=== PATIENT | male | born 1985 | race African-American/Black ===

== ENCOUNTER 2016-09-25 15:47 | Inpatient (IN) ==
[2016-09-25] MEDS ORDERED: METOCLOPRAMIDE 10 MG/2 ML VIAL IV STA (16:08)
[2016-09-25] MEDS ORDERED: ONDANSETRON 4 MG/2 ML VIAL IV STA (16:08)
[2016-09-25] MEDS ORDERED: PANTOPRAZOLE 40 MG VIAL IV STA (16:08)
[2016-09-25] MEDS ORDERED: SODIUM CHLORIDE 0.9% 1,000 ML IV STA (16:08)
[2016-09-25] MEDS ORDERED: LOPERAMIDE 2 MG CAPSULE PO STA (16:08)
[2016-09-25] MEDS ORDERED: metroNIDAZOLE 500 MG TABLET PO STA (16:08)
--- NOTE | 2016-09-25 16:13 | Emergency Department Note ---
Arrival - Arrival Chief Complaint: Nausea/Vomiting/Diarrhea Stated Complaint: DIARRHEA ED Nursing Triage Note: Pt c/o abd pain, diarrhea, fever, nausea, and GUIDO x 2 wks. Pt was seen in the ER while in [facility] for the same complaint. Mode of Arrival: Ambulatory Limitations: No Limitations Source: Patient Time Seen by Provider: 09/25/16 16:07 - History of Present Illness HPI Narrative: This 31-year-old black male presents with 2 weeks of persistent nausea, vomiting , loose stools, low-grade fever, and abdominal cramping onset the day after having some [employer] fried chicken. The patient while in [place] was seen by a physician who told him he had gastroenteritis and began him on Zofran and hydrocodone. The patient has had no let up in symptoms in the last 2 weeks and is feeling progressively more weak. The patient states that he has had no prior problems with his abdomen except for reflux and currently has had escalation in symptoms of heartburn, belching, and water brash. He denies any bright red blood per rectum or melena. Currently he appears medically stable. Onset (ago): week(s) (Patient presents 2 weeks post onset of symptoms) Allergies/Adverse Reactions: Allergies Allergy/AdvReac Type Severity Reaction Status Date / Time No Known Allergies Allergy Unverified 05/25/16 16:54 Home Medications: Home Medications Medication Instructions Recorded Confirmed Type Hydrocodone/Acetaminophen 1 each PO Q6H PRN 09/25/16 09/25/16 History [Hydrocodon-Acetaminophen 5-325] Lansoprazole [Prevacid] 30 mg PO DAILY 09/25/16 09/25/16 History Ondansetron Odt Tab [Zofran Odt] 4 mg PO Q6H PRN 09/25/16 09/25/16 History Review of System - Review of System 12 point system: reviewed and no additional remarkable complaints except as stated - Review of System Constitutional: Present: as per HPI Gastrointestinal: Present: as per HPI Medical,Surgical,& Family Hx - Social History Smoking Status: Never smoker Exam Physical Examination: GENERAL: Well developed, well nourished black male in no acute distress. HEENT: Normocephalic. No trauma. Moist mucous membranes. EOMI. PERRLA. ENT NML NECK: Supple. No adenopathy. CARDIAC: Regular. No murmurs. Heart rate 90 CHEST: Clear to auscultation. No respiratory distress. O2 sat 98 ABDOMEN: Soft. Diffusely tender, especially in the midepigastrium. Hyperactive bowel sounds. EXTREMITIES: No trauma. Normal ROM. No pedal edema. SKIN: No diaphoresis. No rash. NEURO: Alert. Neuro intact no focal deficits. Vital Signs: Vital Signs Temperature 99.7 F H 09/25/16 16:20 Pulse Rate 89 09/25/16 16:20 Respiratory Rate 18 09/25/16 16:20 Blood Pressure 133/71 09/25/16 16:20 O2 Sat by Pulse Oximetry 98 09/25/16 15:47 Course - Reevaluation(s) Reevaluation #1: Advised patient of CT findings of severe colitis and advised need for hospitalization for further evaluation and treatment with probable colonoscopy. - Consultations Consultation #1: Discussed with hospitalist service who will admit for further evaluation and treatment. Results - Labs CBC & BMP: 09/25/16 16:22 09/25/16 18:30 - Diagnostic Findings Procedure: CT Abdomen and Pelvis: image reviewed by me, report reviewed by me ( Changes of inflammatory bowel disease with associated mesenteric adenopathy) Disposition Clinical Impression: Colitis Case discussed with: patient, patient's family Disposition: Still a Patient Condition: Stable Time of Disposition: 19:37
[2016-09-25] MEDS ORDERED: LOPERAMIDE 2 MG CAPSULE ONE (16:16)
[2016-09-25] MEDS ORDERED: PANTOPRAZOLE 40 MG VIAL IV ONE (16:16)
[2016-09-25] MEDS ORDERED: ONDANSETRON 4 MG/2 ML VIAL ONE (16:16)
[2016-09-25] MEDS ORDERED: METOCLOPRAMIDE 10 MG/2 ML VIAL ONE (16:16)
[2016-09-25] MEDS ORDERED: metroNIDAZOLE 500 MG TABLET ONE (16:16)
[2016-09-25 16:36] LABS: Basophils % 0.3 % (0.0-0.8); Eosinophils % 0.4 % (0.00-10.9); Hematocrit 43.4 VOL% (42.0-52.0); Hemoglobin 14.2 GM/DL (14.0-18.0); Immature Granulocytes % 0.4 %; Immature Granulocytes Absolute 0.03 #; Lymphocytes # 1.3 10*3/uL (1.4-4.0); Lymphocytes % 16.8 % (21.2-54.2); Mean Corpuscular HGB Conc 32.7 GM/DL (32-36); Mean Corpuscular Hemoglobin 26 PG (27-34); Mean Corpuscular Volume 78.8 FL (87-102); Mean Platelet Volume 9.1 FL (9.6-12.0); Monocytes # 0.5 10*3/uL (0.11-0.8); Monocytes % 6.5 % (1.7-12.7); Neutrophils % 75.6 % (38.7-73.9); Platelet Count 271 T/CUMM (130-400); Red Blood Count 5.51 MC/CUMM (3.8-5.5); Red Cell Distribution Width 12.2 % (9.3-17.3)
--- NOTE | 2016-09-25 17:41 | CT Report ---
Referring physician: Harris Lindsey EXAM: CT abdomen and pelvis with contrast DATE: 09/25/2016 COMPARISON: None REASON: Generalized abdominal pain TECHNIQUE: Axial images of the abdomen and pelvis were obtained after administration of 100 cc of Omnipaque 350 IV contrast. Coronal and sagittal reformatted images were also provided. Total DLP is 903.80 mGy*cm. FINDINGS: Minimal atelectasis at the lung bases. The liver is normal in size with no masses, dilated ducts, or calcified gallstones. The spleen, pancreas, adrenal glands, and kidneys have an unremarkable appearance. No renal or ureteral calculi are identified. The abdominal aorta is normal in size with no adjacent adenopathy. No dilatation of the small bowel. Significant diffuse thickening of the wall of the colon with no evidence of appendicitis, diverticulitis, or free air. However there are minimally enlarged lymph nodes in the mesentery especially in the right abdominal location. IMPRESSION: Minimal atelectasis at the lung bases. Significant diffuse thickening of the wall of the colon which can be seen with colitis, inflammatory bowel disease, etc. Multiple minimally enlarged lymph nodes in the mesentery which may be reactive but is a somewhat nonspecific finding. If symptoms persist, follow-up CT may be helpful for further evaluation. Nonspecific minimal free fluid in the pelvis. The CT exam was performed using one or more of the following dose reduction techniques: Automated exposure control and adjustment of the mA and/or kV according to patient size. PROCEDURE INTERPRETED AT [facility] DEPARTMENT OF RADIOLOGY Final Report Signed by: Dr. Radha Bourne
[2016-09-25] MEDS ORDERED: HYDROmorphone 2 MG/1 ML VIAL IV STA (17:46)
[2016-09-25] MEDS ORDERED: HYDROmorphone 2 MG/1 ML VIAL ONE (17:48)
[2016-09-25] MEDS ORDERED: methylPREDNISolone SOD SUC 125 MG/2 ML VIAL ONE (17:48)
[2016-09-25] MEDS ORDERED: methylPREDNISolone SOD SUC 125 MG/2 ML VIAL IV STA (17:48)
[2016-09-25 19:12] LABS: Albumin 3.3 G/DL (3.4-5.0); Bilirubin,Total 0.7 MG/DL (0.2-1.0); Calcium 8.5 MG/DL (8.5-10.1); Osmolality,Calculated 276.4 MOS/KG (273-304); Potassium 3.9 MMOL/L (3.5-5.1); Total Protein 6.4 G/DL (6.4-8.3)
[2016-09-25 19:18] LABS: Lactic Acid 0.9 MMOL/L (0.4-2.0)
--- NOTE | 2016-09-25 20:01 | Hospitalist History & Physical ---
Assessment and Plan (1) Diarrhea Status: Acute Assessment and plan: The patient is admitted hospital with diffuse abdominal discomfort and diarrhea. The patient does not have a surgical signs. The patient will be admitted for hydration and starting IV antibiotics. We will obtain GI consultation in the morning. Current Visit: Yes (2) Abdominal pain Status: Acute Current Visit: Yes History of Present Illness Chief complaint: Diarrhea and weakness History of present illness: Mr. Jones is a 31 year old male who has been in usual state of good health. About 2 weeks prior to admission to the hospital the patient began having loose stools and generalized abdominal discomfort worse on the left lower quadrant and another quadrants. The discomfort was moderate, continuous, and worsening. Despite taking oral antibiotics the patient did not improve. The patient now comes to the hospital for further evaluation. The patient denies fever chills chest discomfort or shortness of breath. Home Medications Medication Instructions Recorded Confirmed Type Hydrocodone/Acetaminophen 1 each PO Q6H PRN 09/25/16 09/25/16 History [Hydrocodon-Acetaminophen 5-325] Lansoprazole [Prevacid] 30 mg PO DAILY 09/25/16 09/25/16 History Ondansetron Odt Tab [Zofran Odt] 4 mg PO Q6H PRN 09/25/16 09/25/16 History Allergies Allergy/AdvReac Type Severity Reaction Status Date / Time No Known Allergies Allergy Unverified 05/25/16 16:54 Medical,Surgical,& Family Hx - Family History Family History: Reports;: Family Hypertension - Social History Smoking Status: Never smoker Type of Drug Use: None Marital Status: Lives With:: Spouse Functional capacity: independent ambulation 12 point system: reviewed and no additional remarkable complaints except as stated Exam - Constitutional Vitals: Period Temp Pulse Resp BP Sys/Starkey Pulse Ox Last 24 Hr 99.7 F-99.7 F 89-89 18-18 133-133/71-71 98 Exam: Constitutional System: Mild distress. No tremulousness. Head: Normocephalic, atraumatic. Ears, Nose and Throat System: No evidence of Otitis or Mastoiditis. No epistaxis or discharge Eyes System: Pupils equal, round, and reactive. Extraocular muscles intact. Neck: Supple, without adenopathy, No jugular venous distention. No thyromegaly , neck mass, or prior surgery apparent. Respiratory System: Chest clear to auscultation. Cardiovascular System: Heart with regular rate and rhythm. No murmur. GI System: Abdomen soft, diffuse mild tenderness. Normo active bowel sounds present. Musculoskeletal System: limbs with no pedal edema. Full distal pulses. Neurological System: No discernable sensory deficit. No aphasia Psychiatric System: Conversation is rational Results - Labs CBC & BMP: 09/25/16 16:22 09/25/16 18:30 Lab Results: I have reviewed the past 24 hour labs - Diagnostic Findings Procedure: CT Abdomen and Pelvis: report reviewed by me (Radiologist says that the images of colon revealed thickening consistent with colitis)
[2016-09-25] MEDS ORDERED: ONDANSETRON ODT 4 MG TABLET PO PRN (21:08)
[2016-09-25] MEDS: SODIUM CHLORIDE 0.9% 1,000 ML IV SCH (21:39)
[2016-09-25] MEDS: FAMOTIDINE 20 MG/2 ML VIAL IV SCH (21:50)
[2016-09-25] MEDS: CIPROFLOXACIN 500 MG TABLET PO SCH (21:51)
[2016-09-25] MEDS: metroNIDAZOLE INJ 500 MG in PREMIX 1 EACH IV SCH (21:52)
[2016-09-25] MEDS: ENOXAPARIN 40 MG/0.4 ML SYRINGE SUBCUT SCH (21:52)
[2016-09-26] MEDS ORDERED: SODIUM CHLORIDE 0.9% 1,000 ML IV ONE (00:47)
[2016-09-26 03:49] LABS: Urine Color Yellow (Yellow)
[2016-09-26 03:50] LABS: Apearance,Urine CLEAR (Clear); Bacteria,Urine Occasional /HPF (Few); Bilirubin,Urine Negative (Negative); Blood, Urine Negative (Negative); Glucose,Urine (UA) Negative (Negative); Ketones,Urine 20 mg/dL (Negative); Nitrite,Urine Negative (Negative); Protein,Urine Negative; RBC,Urine 1 /HPF (0-4); Urine Specific Gravity 1.018 (1.001-1.035); Urine Urobilinogen < 2.0 EU/DL (0.2-1.0); WBC,Urine 1 /HPF (0-6)
[2016-09-26] MEDS: metroNIDAZOLE INJ 500 MG in PREMIX 1 EACH IV SCH ×2 (04:48→08:50)
[2016-09-26 04:51] LABS: Basophils % 0.2 % (0.0-0.8); Hematocrit 40.6 VOL% (42.0-52.0); Hemoglobin 13.2 GM/DL (14.0-18.0); Immature Granulocytes % 0.3 %; Immature Granulocytes Absolute 0.02 #; Lymphocytes # 0.9 10*3/uL (1.4-4.0); Mean Corpuscular HGB Conc 32.5 GM/DL (32-36); Mean Corpuscular Hemoglobin 26 PG (27-34); Mean Corpuscular Volume 78.7 FL (87-102); Mean Platelet Volume 9.7 FL (9.6-12.0); Monocytes % 0.6 % (1.7-12.7); Neutrophils # 5.2 10*3/uL (1.4-7.4); Neutrophils % 83.9 % (38.7-73.9); Platelet Count 280 T/CUMM (130-400); Red Blood Count 5.16 MC/CUMM (3.8-5.5); Red Cell Distribution Width 12.2 % (9.3-17.3); White Blood Count 6.2 T/CUMM (4-12)
[2016-09-26 05:11] LABS: Platelet Estimate Normal
[2016-09-26 05:36] LABS: Calcium 8.4 MG/DL (8.5-10.1); Osmolality,Calculated 278.4 MOS/KG (273-304)
[2016-09-26] MEDS: SODIUM CHLORIDE 0.9% 1,000 ML IV SCH ×2 (06:39→18:03)
--- NOTE | 2016-09-26 07:59 | Hospitalist Progress Note ---
Assessment and Plan (1) Diarrhea Status: Acute Assessment and plan: Impression: Diarrhea and enteritis, etiology not known. Inflammatory bowel disease seems unlikely given the lack of hematochezia. Some of his symptoms sound functional , but I would not expect the CT findings to be abnormal. Plan: Antibiotics were instituted yesterday, and we will continue these. GI consultation has been requested. We will await their opinion. I told the patient he may need endoscopic evaluation. This note was completed using [employer] voice recognition software. There may be measurement supervisor errors as a result. Current Visit: Yes Hospitalist: Subjective Interval history: Follow-up colitis. The patient reports a one-year history of belching and intermittent loose stools that he ascribes to certain foods. He says that these have usually been more of a nuisance than a real problem, and he has not sought evaluation. He has not had any blood in stool. He has not had any nausea or vomiting. He has not had any weight loss. About 2 weeks ago, he says that he ate some chicken that "did not taste right." A few days after that, he developed crampy abdominal pain with loose stools. He did not have any blood in stool. He had some subjective fever. He did not have any nocturnal symptoms. He did not notice a change in the symptoms depending on anything that he ate or drank. He did note some anorexia. He was able to travel to [place] for a convention, but had some symptoms while he was in [place]. He said that he sought an evaluation at an emergency room, and was told that he had "the stomach flu." He was given some anti-emetics and Prevacid. He did not improve. After a few more days of the above-mentioned symptoms, he came to the emergency room here. CT scan of the abdomen showed diffuse colitis, and he was admitted. He again reports no blood in the stool. He has had some intermittent dysuria for the past year or so. He has not had any prior abdominal surgery. He denies any upper GI symptoms. There have been no sick contacts. There has been no recent antibiotic use. He has a dog who is not ill. Exam - Constitutional Vitals: Period Temp Pulse Resp BP Sys/Starkey Pulse Ox Last 24 Hr 97.7 F-99.7 F 53-662 18-20 83-133/52-71 92-98 Vital signs are noted above. Heart is regular with no murmur or gallop. Lungs are clear with no rales or wheezes. Abdomen is soft with positive bowel sounds and some mild left lower quadrant tenderness without palpable mass. He is awake and alert Results - Labs CBC & BMP: 09/26/16 04:06 09/26/16 04:06 Lab Results: I have reviewed the past 24 hour labs
[2016-09-26] MEDS: FAMOTIDINE 20 MG/2 ML VIAL IV SCH (08:49)
--- NOTE | 2016-09-26 09:05 | Event Note ---
The patient's C. difficile study on the stool came back as positive. After further discussion, he and the both remember that he took some amoxicillin a month or so ago for some dental problems. We will revise antibiotics accordingly
--- NOTE | 2016-09-26 10:19 | Gastrointestinal Consult Note ---
Assessment and Plan (1) Diarrhea Status: Acute Assessment and plan: 09/26-2 week episode of diarrhea with nausea and abdominal pain/cramping. Recent antibiotic use in the past month. Stool studies noted to be positive today for Clostridium difficile. IV Flagyl noted to be changed to p.o. Flagyl today. Advance diet as tolerated. Plan an addendum to followed by Dr. García. Current Visit: Yes History of Present Illness Chief complaint: Diarrhea, abdominal pain History of present illness: Mr. Jones is a 31 year old male who was admitted to the hospital with 2 week episode of abdominal cramping and diarrhea. Patient states that he was in his usual state of health until approximately 2 weeks ago when he had a fairly sudden onset of lower abdominal cramping followed by diarrhea stools. Patient states that since onset he has had upwards of 6-8 loose watery stools, including nocturnal defecation without incontinence, daily. He states he also had some fever and chills off and on over the last 2 weeks with nausea but denies any vomiting. He also complains of some increased gas pain and pressure. He presented to the emergency room for further evaluation. Patient states that he did not have any melena or hematochezia associated with his stools. He denies any recent weight loss however states that he did have a decrease in his appetite. He states that over the last couple weeks he did travel out of town and was seen at the ER in [place] during that time and was told that he had a stomach virus. He was given nausea medications as well as Prevacid. He states his symptoms did not improve and therefore he presented to our emergency room. He does recall that approximately 1 month ago he took a full one-week regimen of Amoxil for as tooth infection. Denies any other ill contacts in his family. He had a CT of the abdomen with IV contrast on admission and was noted to have significant diffuse thickening of the colon wall with minimally enlarged lymph nodes in the mesentery. No leukocytosis was noted on admission. He was noted today that his stool studies are returned and that showed to be positive for Clostridium difficile. He is currently denying any abdominal pain and states that his stool frequency and volume has decreased since admission. His Flagyl I.V. is noted to have been changed this morning to p.o. Flagyl. Home Medications Medication Instructions Recorded Confirmed Type Hydrocodone/Acetaminophen 1 each PO Q6H PRN 09/25/16 09/26/16 History [Hydrocodon-Acetaminophen 5-325] Lansoprazole [Prevacid] 30 mg PO DAILY 09/25/16 09/26/16 History Ondansetron Odt Tab [Zofran Odt] 4 mg PO Q6H PRN 09/25/16 09/26/16 History Allergies Allergy/AdvReac Type Severity Reaction Status Date / Time No Known Allergies Allergy Unverified 05/25/16 16:54 Medical,Surgical,& Family Hx - Medical History Respiratory: History of: Respiratory Problems (SNORES) Gastrointestinal: History of: GERD Other: History of: Miscellaneous Medical Problems (HX LYPOMA ON HEAD) - Surgical History Thoracic Surgeries: Patient denies;: Organ Transplant, Lobectomy HEENT Surgeries: Patient denies: Eye Surgery, Tonsilectomy & Adenoidectomy Abdominal Surgeries: Patient denies: Abdominal Surgery, Appendectomy, Cholecystectomy, Colonoscopy , Gastric Bypass Surgery, EGD, Hernia Repair - Family History Family History: Reports;: Family Cancer (MOM), Family Hypertension (DAD) Denies;: Family Anesthesia Reaction, Family Diabetes, Family Heart Disease, Family Hematology, Family Psychiatric Problems, Family Stroke, Additional Family History - Social History Smoking Status: Never smoker Frequency of Alcohol Use: None Type of Drug Use: None 12 point system: reviewed and no additional remarkable complaints except as stated - Constitutional Constitutional: Present: as per HPI - EENT Eyes: Present: as per HPI Ears: Present: as per HPI Nose, mouth and throat: Present: as per HPI - Cardiovascular Cardiovascular: Present: as per HPI - Respiratory Respiratory: Present: as per HPI - Gastrointestinal Gastrointestinal: Present: as per HPI, abdominal pain, cramping, diarrhea, loose stools, nausea - Genitourinary Genitourinary: Present: as per HPI - Musculoskeletal Musculoskeletal: Present: as per HPI - Neurological Neurological: Present: as per HPI - Psychiatric Psychiatric: Present: as per HPI - Endocrine Endocrine: Present: as per HPI - Hematologic/Lymphatic Hematologic/Lymphatic: Present: as per HPI Exam - Constitutional Vitals: Period Temp Pulse Resp BP Sys/Starkey Pulse Ox Last 24 Hr 97.7 F-99.7 F 53-662 18-20 83-133/52-71 92-98 General appearance: normal weight, no acute distress - Head Head exam: Present: normal inspection, normocephalic - Eye Eye exam: Present: other (Lids and conjunctive are unremarkable). Absent: scleral icterus - ENT ENT exam: Present: normal exam, normal oropharynx - Neck Neck exam: Present: normal inspection - Respiratory Respiratory exam: Present: clear to auscultation bilaterally. Absent: rales, rhonchi, wheezes - Cardiovascular Cardiovascular exam: Present: regular rate and rhythm. Absent: diastolic murmur , JVD, systolic murmur - GI/Abdominal GI/Abdominal exam: Present: normal bowel sounds, soft. Absent: ascites, distended, mass, organomegaly, tenderness - Extremities Exam Extremities exam: Present: normal inspection, full ROM - Back Exam Back exam: Present: normal inspection - Neurological Exam Neurological exam: Present: alert, oriented X3 - Psychiatric Psychiatric exam: Present: normal affect, normal mood - Skin Skin exam: Present: normal color, warm, dry Results - Labs CBC & BMP: 09/26/16 04:06 09/26/16 04:06 Lab Results: I have reviewed the past 24 hour labs - Diagnostic Findings Procedure: CT Abdomen and Pelvis: report reviewed by me
[2016-09-26] MEDS: CIPROFLOXACIN 500 MG TABLET PO SCH (11:27)
[2016-09-26] MEDS: PANTOPRAZOLE 40 MG TABLET PO SCH ×2 (11:28→14:29)
[2016-09-26] MEDS: metroNIDAZOLE 500 MG TABLET PO SCH ×2 (14:29→21:00)
[2016-09-26] MEDS: ENOXAPARIN 40 MG/0.4 ML SYRINGE SUBCUT SCH (21:00)
[2016-09-27] MEDS: SODIUM CHLORIDE 0.9% 1,000 ML IV SCH ×2 (00:26→09:13)
[2016-09-27] MEDS: metroNIDAZOLE 500 MG TABLET PO SCH (08:13)
[2016-09-27] MEDS: PANTOPRAZOLE 40 MG TABLET PO SCH (08:13)
--- NOTE | 2016-09-27 11:20 | Gastrointestinal Progress Note ---
Assessment and Plan (1) Diarrhea Status: Acute Assessment and plan: 09/27-diarrhea improved with 3-4 episodes since yesterday. Tolerating diet advancement. For possible discharge home today. Plan an addendum to follow Dr. García. 09/26-2 week episode of diarrhea with nausea and abdominal pain/cramping. Recent antibiotic use in the past month. Stool studies noted to be positive today for Clostridium difficile. IV Flagyl noted to be changed to p.o. Flagyl today. Advance diet as tolerated. Plan an addendum to followed by Dr. García. Current Visit: Yes Gastroenterology - PN: Subj Interval history: CC: Clostridium difficile Patient is seen awake and alert with at bedside. States he had an uneventful night. States he is only had approximately 3-4 loose stools since yesterday and having no complaints of abdominal cramping or pain at this time. His diet was advanced yesterday and is tolerating this well with good appetite. Denies any overt bleeding. Afebrile. Abdomen is soft, nontender. Discussed with patient and the importance of completing his antibiotics upon discharge as well as good handwashing to prevent spread of the bacterial to other family members. Patient states overall he is feeling much better and feels like he is ready to return to work at this time. He is noted for a tentative discharge later today. ROS: Denies shortness of breath or chest pain. Exam (Progress Note) - Constitutional Vitals: Period Temp Pulse Resp BP Sys/Starkey Pulse Ox Last 24 Hr 97.8 F-99.0 F 54-75 16-20 110-121/65-80 94-99 - Other Additional findings: General appearance: normal weight, no acute distress - Head Head exam: Present: normal inspection, normocephalic - Eye Eye exam: Present: other (Lids and conjunctive are unremarkable). Absent: scleral icterus - ENT ENT exam: Present: normal exam, normal oropharynx - Neck Neck exam: Present: normal inspection - Respiratory Respiratory exam: Present: clear to auscultation bilaterally. Absent: rales, rhonchi, wheezes - Cardiovascular Cardiovascular exam: Present: regular rate and rhythm. Absent: diastolic murmur , JVD, systolic murmur - GI/Abdominal GI/Abdominal exam: Present: normal bowel sounds, soft. Absent: ascites, distended, mass, organomegaly, tenderness - Extremities Exam Extremities exam: Present: normal inspection, full ROM - Back Exam Back exam: Present: normal inspection - Neurological Exam Neurological exam: Present: alert, oriented X3 - Psychiatric Psychiatric exam: Present: normal affect, normal mood - Skin Skin exam: Present: normal color, warm, dry Results - Labs CBC & BMP: 09/26/16 04:06 09/26/16 04:06 Lab Results: I have reviewed the past 24 hour labs
[2016-09-27 11:31] VITALS: BP 113/68
--- NOTE | 2016-09-27 14:16 | Discharge Summary ---
Hospital Course - Hospital Course Hospital Course: Discharge diagnosis: 1. Clostridium difficile colitis The patient presented to the hospital for evaluation of some lower GI symptoms, manifested mainly as diarrhea. CT scan showed evidence of colitis. After some prompting, he finally remembered that he had taken some antibiotics within the past 3 months for a dental abscess. He was given some Flagyl after his C. difficile studies were positive. He tolerated this well. His GI symptoms resolved, and he will go home to complete a one-week course of metronidazole. Medication reconciliation has been performed. Regular diet. Activity as tolerated. This note was completed using [employer] voice recognition software. There may be shaper operator errors as a result. Diagnosis - Discharge Diagnosis (1) Diarrhea Status: Acute Discharge Plan - Discharge Data Disposition: Disch To Home/Self Care Condition at Discharge: Stable Discharge Diet: advance to your usual diet Activity: resume usual activities as tolerated Hygiene: no restrictions Weight Bearing at Discharge: full weight bearing Driving: no restrictions - Discharge Medications New metroNIDAZOLE TAB [Flagyl Cap/Tab] 500 mg PO TID #20 tablet Continue Lansoprazole [Prevacid] 30 mg PO DAILY Hydrocodone/Acetaminophen [Hydrocodon-Acetaminophen 5-325] 1 each PO Q6H PRN PRN Reason: Pain Discontinued Ondansetron Odt Tab [Zofran Odt] 4 mg PO Q6H PRN PRN Reason: Nausea - Follow Up or Referral - Forms/Instructions Exam - Constitutional Vitals: Period Temp Pulse Resp BP Sys/Starkey Pulse Ox Last 24 Hr 97.8 F-98.6 F 53-68 16-20 110-121/65-80 96-99 Vital signs are noted above. He is up and about. Discharge Results Procedures and tests throughout hospitalization: Pending Orders 09/25/16 17:05 Blood Culture Stat Labs on day of discharge: Preliminary micro results at discharge 09/25/16 17:05 Blood Culture - Preliminary Blood No growth at 1 day 09/25/16 16:22 Blood Culture - Preliminary Blood No growth at 1 day DS: Provider Date of admission: 09/25/16 19:53 Primary care physician: . No PCP Attending physician on admission: Rojelio Bello DO Consults: 09/25/16 21:08 Consult to Physician [CONS] Routine Comment: diarrhea, abnormal CT colon Consulting Provider: Bobby García Discharging clinician: Carter Armstrong MD Expected date of discharge: 09/27/16
== END 2016-09-27 15:20 | disposition home or self-care (01) | DRG 248 ==
LOC: N.ED 15:47 → SUATTDRO 19:53 → N.EDINP 19:53 → N.2E 20:33
PROVIDERS: ADMIT Internal Medicine; ATTEND Internal Medicine Geriatric Medicine